=== PATIENT | male | born 1990 | race American Indian/Alaskan Native ===

== ENCOUNTER 2019-08-20 12:15 | Emergency (ER) | payer SELFPAY ==
--- NOTE | 2019-08-20 12:29 | Emergency Department Report ---
ED ENT HPI - General Chief complaint: Dental/Oral Stated complaint: CRITICAL LFT BOTTOM TOOTHACHE Time Seen by Provider: 08/20/19 12:23 Source: patient Mode of arrival: Ambulatory Limitations: No Limitations - History of Present Illness MD complaint: tooth pain -: Gradual Severity: mild Improves with: none Worsens with: none Context- Dental: history of dental caries, poor dental care Associated Symptoms: toothache, tinnitus. denies: sore throat, discharge from ear, rhinorrhea - Related Data Previous Rx's Medication Instructions Recorded Last Taken Type Amoxicillin [Amoxicillin TAB] 875 mg PO BID #20 tablet 08/20/19 Unknown Rx Chlorhexidine Mouthwash [Peridex] 15 ml MM BID #1 bottle 08/20/19 Unknown Rx Ketorolac [Toradol] 10 mg PO Q6H PRN #15 tablet 08/20/19 Unknown Rx Lidocaine Viscous 2% 5 ml MM Q3H PRN #120 udc 08/20/19 Unknown Rx Allergies Allergy/AdvReac Type Severity Reaction Status Date / Time No Known Allergies Allergy Unverified 08/20/19 12:17 ED Dental HPI - General Chief complaint: Dental/Oral Stated complaint: CRITICAL LFT BOTTOM TOOTHACHE Time Seen by Provider: 08/20/19 12:23 Source: patient Mode of arrival: Ambulatory Limitations: No Limitations - Related Data Previous Rx's Medication Instructions Recorded Last Taken Type Amoxicillin [Amoxicillin TAB] 875 mg PO BID #20 tablet 08/20/19 Unknown Rx Chlorhexidine Mouthwash [Peridex] 15 ml MM BID #1 bottle 08/20/19 Unknown Rx Ketorolac [Toradol] 10 mg PO Q6H PRN #15 tablet 08/20/19 Unknown Rx Lidocaine Viscous 2% 5 ml MM Q3H PRN #120 udc 08/20/19 Unknown Rx Allergies Allergy/AdvReac Type Severity Reaction Status Date / Time No Known Allergies Allergy Unverified 08/20/19 12:17 ED Review of Systems ROS: Stated complaint: CRITICAL LFT BOTTOM TOOTHACHE Other details as noted in HPI Comment: All other systems reviewed and negative ED Past Medical Hx - Past Medical History Previous Medical History?: No - Surgical History Past Surgical History?: No - Medications Home Medications: Home Medications Medication Instructions Recorded Confirmed Last Taken Type Amoxicillin [Amoxicillin TAB] 875 mg PO BID #20 tablet 08/20/19 Unknown Rx Chlorhexidine Mouthwash [Peridex] 15 ml MM BID #1 bottle 08/20/19 Unknown Rx Ketorolac [Toradol] 10 mg PO Q6H PRN #15 tablet 08/20/19 Unknown Rx Lidocaine Viscous 2% 5 ml MM Q3H PRN #120 udc 08/20/19 Unknown Rx ED Physical Exam - General Limitations: No Limitations General appearance: alert, in no apparent distress - Head Head exam: Present: atraumatic, normocephalic - Eye Eye exam: Present: normal appearance, PERRL, EOMI Pupils: Present: normal accommodation - ENT ENT exam: Present: normal exam, normal orophraynx, mucous membranes moist, other (left lower molar erosion with impaciton. severe dental caries. ) - Neck Neck exam: Present: normal inspection - Respiratory Respiratory exam: Present: normal lung sounds bilaterally. Absent: respiratory distress - Cardiovascular Cardiovascular Exam: Present: regular rate, normal rhythm. Absent: systolic murmur, diastolic murmur, rubs, gallop - GI/Abdominal GI/Abdominal exam: Present: soft, normal bowel sounds - Rectal Rectal exam: Present: deferred - Extremities Exam Extremities exam: Present: normal inspection - Back Exam Back exam: Present: normal inspection - Neurological Exam Neurological exam: Present: alert, oriented X3 - Psychiatric Psychiatric exam: Present: normal affect, normal mood - Skin Skin exam: Present: warm, dry, intact, normal color. Absent: rash Critical care attestation.: If time is entered above; I have spent that time in minutes in the direct care of this critically ill patient, excluding procedure time. ED Disposition Clinical Impression: Dentalgia, Dental caries Disposition: TO HOME OR SELFCARE Is pt being admited?: No Does the pt Need Aspirin: No Condition: Stable Instructions: Toothache (ED), Dental Caries (ED) Referrals: [facility] [Outside] - 3-5 Days
[2019-08-20 12:36] VITALS: BP 116/84
== END 2019-08-20 12:54 | disposition home or self-care (01) ==
LOC: ED 12:15
DX: K02.9 Dental caries, unspecified (principal); Z79.899 Other long term (current) drug therapy
CPT/HCPCS: 99281